=== PATIENT | male | born 1980 | race Two or more races ===

== ENCOUNTER 2021-12-16 12:58 | Inpatient (IN) | payer MEDICAID, OTHER ==
[~2021-12-16] VITALS: Ht 182.9 cm; Wt 103.7 kg
[2021-12-16 14:24] LABS: Basophils # (auto) 0 10 ^3/uL (0-0.2); Basophils % (auto) 0.2 % (0.0-2.0); Eosinophils # (auto) 0 10 ^3/uL (0-0.8); Monocytes # (auto) 1.3 10 ^3/uL (0-1.3); Red Cell Distribution Width 12.3 % (11.8-14.3)
[2021-12-16 14:25] LABS: Hematocrit 46.4 % (41.0-53.0); Hemoglobin 15.7 g/dL (13.5-17.5); Lymphocytes # (auto) 1.4 10 ^3/uL (0.4-5.4); Lymphocytes % (auto) 8.7 % (10.0-50.0); Mean Corpuscular Hgb Conc. 33.9 g/dL (32.0-36.0); Mean Corpuscular Volume 79.5 fL (80.0-100.0); Monocytes % (auto) 8.1 % (0.0-12.0); Neutrophils # (auto) 13.4 10 ^3/uL (1.6-8.6); Red Blood Cells 5.83 10^6/uL (4.5-5.90); White Blood Cell 16.2 10^3/uL (4.4-10.8)
[2021-12-16 14:46] LABS: Albumin 3.3 g/dL (3.4-5.0); Calcium 8.5 mg/dL (8.5-10.1); Magnesium 2.4 mg/dL (1.6-2.6)
[2021-12-16 14:49] LABS: Bilirubin, Total 0.8 mg/dL (0.2-1.0); Total Protein 7.6 g/dL (6.4-8.2)
[2021-12-16] MEDS ORDERED: AZITHROMYCIN 500MG/ 250ML 250 ML IV ONE (15:30)
[2021-12-16] MEDS ORDERED: cefTRIAXone 1GM/50ML D5W 50 ML IV ONE (15:30)
[2021-12-16 15:50] LABS: BUN/Creatinine Ratio 12.1
[2021-12-16] MEDS ORDERED: IOHEXOL 350 MG/ML 100ML IJ ONE (15:51)
[2021-12-16] MEDS ORDERED: DEXTROSE (50%) 50ML SYRG IV PRN (16:00)
[2021-12-16] MEDS ORDERED: NITROGLYCERIN 0.4 MG SL TAB SL PRN (16:00)
[2021-12-16] MEDS ORDERED: MORPHINE SULFATE INJ 2 MG/ml SYRG IV PRN ×2 (16:00→19:45)
[2021-12-16] MEDS ORDERED: ACETAMINOPHEN 325 MG TAB PO ONE (16:15)
[2021-12-16] MEDS ORDERED: LACTATED RINGER'S 1,000 ML IV ONE (16:15)
[2021-12-16] MEDS ORDERED: ACETAMINOPHEN 325 MG TAB PO PRN ×2 (16:15→19:45)
[2021-12-16] MEDS: ACCU-CHEK COMFORT CURVE STRIP VI SCH ×2 (16:40→22:06)
[2021-12-16] MEDS: InsuLIN REG 1unit/0.01ml Soln (100units/ml) SC SCH ×2 (16:49→22:26)
[2021-12-16] MEDS ORDERED: ENOXAPARIN SOD 40 MG/0.4 ML SYRINGE SC ONE (17:30)
[2021-12-16 19:12] LABS: Lactic Acid w/Reflex 2.2 mmol/L (0.4-2.0)
[2021-12-16] MEDS ORDERED: hydrALAZINE HCL 20 MG/ML VL IV PRN (19:45)
[2021-12-16] MEDS ORDERED: HYDROcodone-ACET 5/325MG TAB PO PRN (19:45)
[2021-12-16] MEDS ORDERED: IPRATROPIUM BROM 0.5 MG/2.5ML INH SOL NEB PRN (19:45)
[2021-12-16] MEDS ORDERED: PROMETHAZINE-DM 5 ML ORAL SYRUP PO PRN (19:45)
[2021-12-16] MEDS ORDERED: DexAMETHasone INJECTION 10 MG in D5W 5% 50 ML IV ONE (19:45)
[2021-12-16] MEDS ORDERED: DOCUSATE SOD 100 MG CAP PO PRN (19:45)
[2021-12-16] MEDS ORDERED: LORazepam 0.5 MG TAB PO PRN (19:45)
[2021-12-16] MEDS ORDERED: ONDANSETRON HCL 4 MG/2 ML VIAL IV PRN (19:45)
[2021-12-16] MEDS ORDERED: DexAMETHasone SOD PHOS 4 MG/1ML SDV INJ ONE (20:02)
[2021-12-16 20:14] LABS: Magnesium 2.2 mg/dL (1.6-2.6); Phosphorus 2.3 mg/dL (2.5-4.90)
[2021-12-16 21:29] LABS: INR 1.27 (0.9-1.15); Partial Thromboplastin Time 33.2 sec (23.6-33.0)
[2021-12-16 21:47] VITALS: BP 114/77
[2021-12-16] MEDS: ATORVASTATIN 20 MG TAB PO SCH (22:06)
[2021-12-17 00:29] VITALS: BP 113/72
[2021-12-17 05:00] VITALS: BP 111/58
[2021-12-17] MEDS ORDERED: LOSA25TA38 PO (06:48)
[2021-12-17] MEDS ORDERED: METF-370 PO (06:48)
[2021-12-17] MEDS: ACCU-CHEK COMFORT CURVE STRIP VI SCH ×4 (06:57→21:43)
[2021-12-17 07:02] LABS: Basophils # (auto) 0 10 ^3/uL (0-0.2); Eosinophils # (auto) 0 10 ^3/uL (0-0.8); Hematocrit 40.7 % (41.0-53.0); Lymphocytes # (auto) 0.9 10 ^3/uL (0.4-5.4); Lymphocytes % (auto) 8.6 % (10.0-50.0); Mean Corpuscular Hemoglobin 27.5 pg (28.0-32.0); Mean Corpuscular Hgb Conc. 34.3 g/dL (32.0-36.0); Mean Corpuscular Volume 80.1 fL (80.0-100.0); Monocytes # (auto) 0.3 10 ^3/uL (0-1.3); Monocytes % (auto) 2.7 % (0.0-12.0); Neutrophils # (auto) 8.8 10 ^3/uL (1.6-8.6); Neutrophils % (auto) 88.7 % (37.0-80.0); Red Blood Cells 5.08 10^6/uL (4.5-5.90); Red Cell Distribution Width 12.4 % (11.8-14.3); White Blood Cell 9.9 10^3/uL (4.4-10.8)
[2021-12-17] MEDS: InsuLIN REG 1unit/0.01ml Soln (100units/ml) SC SCH ×4 (07:04→21:49)
[2021-12-17 07:13] LABS: INR 1.1 (0.9-1.15); Partial Thromboplastin Time 35.6 sec (23.6-33.0)
[2021-12-17 07:20] LABS: Albumin 2.8 g/dL (3.4-5.0); Calcium 8.5 mg/dL (8.5-10.1); Potassium 4.2 mmol/L (3.5-5.1)
[2021-12-17 07:28] LABS: Thyroid Stimulating Hormone 0.35 uIU/mL (0.358-3.74)
[2021-12-17 07:35] LABS: Bilirubin, Total 0.6 mg/dL (0.2-1.0); Phosphorus 2.8 mg/dL (2.5-4.90); Total Protein 7.2 g/dL (6.4-8.2); Uric Acid 5.6 mg/dL (3.5-7.2)
[2021-12-17 09:00] VITALS: BP 104/67
[2021-12-17] MEDS: FAMOTIDINE (10MG/ML) 2ML VL IV SCH (09:55)
[2021-12-17] MEDS: cefTRIAXone 1GM/50ML D5W 50 ML IV SCH (09:55)
[2021-12-17] MEDS: ENOXAPARIN SOD 40 MG/0.4 ML SYRINGE SC SCH (09:56)
[2021-12-17] MEDS: ASPirin 81 mg TAB PO SCH (09:56)
[2021-12-17] MEDS ORDERED: VANCOMYCIN PER PHARMACY 0 MG IV SCH (10:45)
[2021-12-17] MEDS ORDERED: VANCOMYCIN 1GM/250ML 250 ML IV ONE (10:45)
[2021-12-17] MEDS: AZITHROMYCIN 500MG/ 250ML 250 ML IV SCH (11:00)
[2021-12-17 13:00] VITALS: BP 107/64
[2021-12-17 16:52] VITALS: BP 110/70
[2021-12-17] MEDS ORDERED: LORA-622 PO (20:11)
[2021-12-17] MEDS ORDERED: diphenhdrAMINE HCL 25 MG CAP PO ONE (21:00)
[2021-12-17] MEDS: VANCOMYCIN 1GM/250ML 250 ML IV SCH (21:42)
[2021-12-17] MEDS: ATORVASTATIN 20 MG TAB PO SCH (21:42)
[2021-12-17 22:00] VITALS: BP 100/63
[2021-12-17 23:59] LABS: Urine Bacteria NONE SEEN /hpf (None Seen); Urine Blood Negative /uL (Negative); Urine Mucus FEW (None Seen); Urine Specific Gravity 1.049 (1.001-1.035); Urine WBC <1 /hpf (0 - 3)
[2021-12-18 00:08] LABS: Alcohol, Urine < 3.0 mg/dL (0-10); Amphetamine Screen, Urine NEGATIVE (NEGATIVE); Benzodiazephine Screen, Urine NEGATIVE (NEGATIVE); Cannabinoid Screen, Urine POSITIVE (NEGATIVE); Opiate Scree,Urine NEGATIVE (NEGATIVE); Phencyclidine Screen, Urine NEGATIVE (NEGATIVE); Protein, Urine 32.7 mg/dL (0.0-11.9)
[2021-12-18 00:19] LABS: Barbiturate Scree,Urine NEGATIVE (NEGATIVE); Cocaine Screen, Urine NEGATIVE (NEGATIVE)
[2021-12-18 05:00] VITALS: BP 99/56
[2021-12-18 05:00] LABS: Basophils # (auto) 0 10 ^3/uL (0-0.2); Basophils % (auto) 0.2 % (0.0-2.0); Eosinophils # (auto) 0 10 ^3/uL (0-0.8); Eosinophils % (auto) 0.1 % (0.0-7.0); Hematocrit 39.5 % (41.0-53.0); Hemoglobin 13.4 g/dL (13.5-17.5); Lymphocytes # (auto) 1.8 10 ^3/uL (0.4-5.4); Lymphocytes % (auto) 18.7 % (10.0-50.0); Mean Corpuscular Hemoglobin 27.2 pg (28.0-32.0); Mean Corpuscular Volume 80.1 fL (80.0-100.0); Monocytes # (auto) 0.6 10 ^3/uL (0-1.3); Monocytes % (auto) 6.8 % (0.0-12.0); Neutrophils % (auto) 74.2 % (37.0-80.0); Red Blood Cells 4.93 10^6/uL (4.5-5.90); Red Cell Distribution Width 12.4 % (11.8-14.3); White Blood Cell 9.4 10^3/uL (4.4-10.8)
[2021-12-18 05:27] LABS: BUN/Creatinine Ratio 24.4; Calcium 9.1 mg/dL (8.5-10.1); Potassium 4.1 mmol/L (3.5-5.1)
[2021-12-18] MEDS: VANCOMYCIN 1GM/250ML 250 ML IV SCH ×3 (06:11→21:49)
[2021-12-18] MEDS: ACCU-CHEK COMFORT CURVE STRIP VI SCH ×4 (06:11→21:50)
[2021-12-18] MEDS: InsuLIN REG 1unit/0.01ml Soln (100units/ml) SC SCH ×4 (06:18→22:01)
[2021-12-18 09:00] VITALS: BP 113/71
[2021-12-18] MEDS: cefTRIAXone 1GM/50ML D5W 50 ML IV SCH (09:54)
[2021-12-18] MEDS: ASPirin 81 mg TAB PO SCH (09:55)
[2021-12-18] MEDS: ENOXAPARIN SOD 40 MG/0.4 ML SYRINGE SC SCH (09:55)
[2021-12-18] MEDS: AZITHROMYCIN 500MG/ 250ML 250 ML IV SCH (09:55)
[2021-12-18] MEDS: FAMOTIDINE (10MG/ML) 2ML VL IV SCH (09:55)
[2021-12-18 13:00] VITALS: BP 104/61
[2021-12-18 17:00] VITALS: BP 110/64
[2021-12-18] MEDS: ATORVASTATIN 20 MG TAB PO SCH (21:50)
[2021-12-18 22:00] VITALS: BP 100/62
[2021-12-19 05:42] LABS: BUN/Creatinine Ratio 17.4; Calcium 8.3 mg/dL (8.5-10.1); Potassium 4.4 mmol/L (3.5-5.1)
[2021-12-19 05:52] LABS: Basophils # (auto) 0 10 ^3/uL (0-0.2); Basophils % (auto) 0.3 % (0.0-2.0); Eosinophils # (auto) 0.1 10 ^3/uL (0-0.8); Eosinophils % (auto) 1.3 % (0.0-7.0); Hematocrit 38.5 % (41.0-53.0); Hemoglobin 13.4 g/dL (13.5-17.5); Lymphocytes # (auto) 2.2 10 ^3/uL (0.4-5.4); Lymphocytes % (auto) 35.5 % (10.0-50.0); Mean Corpuscular Hemoglobin 27.9 pg (28.0-32.0); Mean Corpuscular Hgb Conc. 34.8 g/dL (32.0-36.0); Mean Corpuscular Volume 80.1 fL (80.0-100.0); Monocytes # (auto) 0.6 10 ^3/uL (0-1.3); Monocytes % (auto) 10.5 % (0.0-12.0); Neutrophils # (auto) 3.2 10 ^3/uL (1.6-8.6); Neutrophils % (auto) 52.4 % (37.0-80.0); Red Cell Distribution Width 12.3 % (11.8-14.3); White Blood Cell 6.1 10^3/uL (4.4-10.8)
[2021-12-19] MEDS: VANCOMYCIN 1GM/250ML 250 ML IV SCH (06:17)
[2021-12-19] MEDS: ACCU-CHEK COMFORT CURVE STRIP VI SCH ×2 (06:25→12:00)
[2021-12-19] MEDS: InsuLIN REG 1unit/0.01ml Soln (100units/ml) SC SCH ×2 (06:27→12:00)
[2021-12-19 06:45] VITALS: BP 110/75
[2021-12-19 08:34] VITALS: BP 103/71
[2021-12-19] MEDS: ASPirin 81 mg TAB PO SCH (09:53)
[2021-12-19] MEDS: FAMOTIDINE (10MG/ML) 2ML VL IV SCH (09:53)
[2021-12-19] MEDS: ENOXAPARIN SOD 40 MG/0.4 ML SYRINGE SC SCH (09:53)
[2021-12-19] MEDS ORDERED: AMOX500T86 PO (12:56)
[2021-12-19 13:00] VITALS: BP 112/75
== END 2021-12-19 13:36 | disposition home or self-care (01) | DRG 720 ==
LOC: EDBD 12:58 → ER 12:58 → TELE 15:47 → TELE-WESTW 23:21
PROVIDERS: ADMIT Hospitalist; ATTEND Internal Medicine Pulmonary Disease
DX: A41.9 Sepsis, unspecified organism (principal); J96.01 Acute respiratory failure with hypoxia; J15.3 Pneumonia due to streptococcus, group B; I10 Essential (primary) hypertension; G44.209 Tension-type headache, unspecified, not intractable; D72.810 Lymphocytopenia; F17.200 Nicotine dependence, unspecified, uncomplicated; R76.11 Nonspecific reaction to tuberculin skin test without active tuberculosis; Z83.3 Family history of diabetes mellitus; E66.01 Morbid (severe) obesity due to excess calories; E78.5 Hyperlipidemia, unspecified; M54.50 Low back pain, unspecified; Z20.822 Contact with and (suspected) exposure to COVID-19; Z68.33 Body mass index [BMI] 33.0-33.9, adult
CPT/HCPCS: 36415; 71045; 71260; 74177; 80048; 80053; 80061; 80202; 80307; 81001; 82550; 82728; 82962; 83036; 83605; 83615; 83690; 83735; 83880; 84100; 84156; 84439; 84443; 84484; 84550; 85025; 85379; 85610; 85652; 85730; 86141; 86710; 87040; 87070; 87077; 87086; 87186; 87205; 87804; 93005; 96361; 96365; 96367; 96372; 99291; G0378; J0696; J1100; J1815; J3490; J7060